=== PATIENT | female | born 1965 | race Asian ===

== ENCOUNTER 2023-06-19 04:03 | Emergency (ER) | payer OTHER, SELFPAY ==
[2023-06-19 04:20] VITALS: BP 132/92
[2023-06-19 04:59] LABS: COVID-19 Antigen Negative (Negative)
--- NOTE | 2023-06-19 05:13 | ED.GENMED ---
History of Present Illness
<ARNOLD Johnson - Last Filed: 06/19/23 06:19>
General
Chief Complaint: Cold/Flu/URI Symptoms
Source: patient
Exam Limitations: none
Time Seen by Provider: 06/19/23 04:53
Nursing documentation reviewed up to this point in time: agreed with
Travel History
Have you had any contact with someone who has COVID-19?: No
Do you have any symptoms of coronavirus? Fever > 100 degrees, chills, cough, shortness of breath, sore throat, loss of taste or smell, muscle aches, or headache?: No
History of Present Illness
History of Present Illness:
This is a 57 year old female who presents to the ED c/o chest congestion x 1 day. Pt states she took robitussin, tessalon perles, and a nose spray prior to sleeping, but woke up around 3 am with continued chest congestion and mucus. She states the
began feeling anxious which made her feel short of breath as well. She felt as though she couldn't talk and her voice was hoarse and sore and she felt as though she was wheezing. She also admits to a runny nose and sore throat. Pt adds that over the
past year, she has been experiencing allergies with a runny nose. She has been blowing her nose often, leading to scabbing and bleeding inside of her nose. She denies any fever, chills, SANTOS, lightheadedness, dizziness, CP, n/v, abdominal pain,
constipation, diarrhea, cough, ear pain, sinus pain, or reflux. She denies any sick contacts. Pt adds that she had a spider bite 2 weeks ago and she was treated with unknown antibiotics which she finished 4 days ago.
Pt also complains of 'carpal tunnel' pain in her right wrist. Pt states she has had intermittent pain in her right wrist for years, especially with touch and trauma. She has not seen ortho and denies using a brace or medications for the pain.
Pt is a former smoker and denies any drug or alcohol use.
Past History
<ST AlexNC - Last Filed: 06/19/23 06:19>
Past History
ED Past Medical History: None
Patient has exhibited threatening behavior?: No
Social History
Tobacco: Former smoker
Alcohol: None
Drug: None
Personal:
Living: with family
Employment: Employed
Review of Systems
<ST AlexNC - Last Filed: 06/19/23 06:19>
Review of Systems
All Other Systems: ROS reviewed and negative except as documented in HPI and ROS
Constitutional: Reports no symptoms; Denies fever or chills
EENT: Reports sore throat and runny nose
Respiratory: Reports cough (intermittent), trouble breathing and other (chest congestion with mucus, chest pressure)
Cardiac: Reports no symptoms; Denies chest pain
ABD/GI: Reports no symptoms; Denies abdominal pain, nausea, vomiting, diarrhea or constipated
: Reports no symptoms
Musculoskeletal: Reports no symptoms; Denies muscle pain
Skin: Reports no symptoms
Neurological: Reports no symptoms; Denies dizzy or headache
Psychiatric: Reports anxiety
Phy Exam
<ST AlexNC - Last Filed: 06/19/23 06:19>
General Physical Exam
General Presentation: no apparent distress
General age: appears stated age
General Skin: warm and dry
General Habitus: normal
General Mental: alert
General Hydration: appears well hydrated
ENT Exam
ENT Exam: TM's normal, pharynx normal, neck supple, normocephalic and swallowing well
Cardiovascular Exam
Cardiovascular Exam: regular rate/rhythm, no edema and no murmur
Heart Sounds: normal
Pulmonary Exam
Pulmonary Exam: lungs clear, no respiratory distress, no rales, no crackles, no rhonchi and no wheezing
Oxygen Status: room air
Gastrointestinal Exam
Gastrointestinal Exam: normal bowel sounds, soft, non distended and tender (mild tenderness to palpation in the epigastric region)
Neurological Exam
Neurological Exam: alert and oriented x3
Musculoskeletal Exam
Musculoskeletal Exam: full ROM and no edema
Skin Exam
Skin Exam: normal color
Psychiatric Exam
Psychiatric Exam: normal mood/affect
Course
<ARNOLD Johnson - Last Filed: 06/19/23 06:19>
Orders/Labs/Results
Orders:
Orders
06/19/23 04:27
COVID-19 Antigen Urgent
Source: Nasal Swab
Influenza A+B Rapid Molecular Urgent
GREGORIO Source: Nasal Swab
Specimen Description:
06/19/23 05:26
ECG [Electrocardiogram (*1)] Stat
Reason for Study: Shortness of Breath
CXR2 [CR Chest - 2 Views ] Stat
Comment:
Reason For Exam: 'CHEST CONGESTION'
06/19/23 05:27
EKG- Treatment ONCE
Vital Signs
Initial and Last Documented VS:
Initial Vital Signs
Temp Pulse Resp BP Pulse Ox
98.2 F 85 18 132/92 96
06/19/23 04:20 06/19/23 04:20 06/19/23 04:20 06/19/23 04:20 06/19/23 04:20
Last Documented Vital Signs
Temp Pulse Resp BP Pulse Ox
98.2 F 85 18 126/87 96
06/19/23 04:20 06/19/23 04:20 06/19/23 04:20 06/19/23 05:54 06/19/23 04:20
<Becki Jiménez MD - Last Filed: 06/19/23 06:14>
Orders/Labs/Results
Orders:
Orders
06/19/23 04:27
COVID-19 Antigen Urgent
Source: Nasal Swab
Influenza A+B Rapid Molecular Urgent
GREGORIO Source: Nasal Swab
Specimen Description:
06/19/23 05:26
ECG [Electrocardiogram (*1)] Stat
Reason for Study: Shortness of Breath
CXR2 [CR Chest - 2 Views ] Stat
Comment:
Reason For Exam: 'CHEST CONGESTION'
06/19/23 05:27
EKG- Treatment ONCE
Vital Signs
Initial and Last Documented VS:
Initial Vital Signs
Temp Pulse Resp BP Pulse Ox
98.2 F 85 18 132/92 96
06/19/23 04:20 06/19/23 04:20 06/19/23 04:20 06/19/23 04:20 06/19/23 04:20
Last Documented Vital Signs
Temp Pulse Resp BP Pulse Ox
98.2 F 85 18 126/87 96
06/19/23 04:20 06/19/23 04:20 06/19/23 04:20 06/19/23 05:54 06/19/23 04:20
<ARNOLD Johnson - Last Filed: 06/19/23 06:19>
*Critical Care Note
Total Time (30-74mins, 75-104mins- exclusive of procedures): Not Applicable
ED Attending Note
<ARNOLD Johnson - Last Filed: 06/19/23 06:19>
-
Portions of this chart may have been created with voice recognition software.� Occasional wrong word or��sound alike� substitutions may have occurred due to the inherent limitations of voice recognition software.
<Becki Jiménez MD - Last Filed: 06/19/23 06:14>
ED Attending Note
Patient seen and examined by attending physician: Yes
I performed the substantive portion of visit, reviewed & personally made and approve the management plan that is documented in note by myself or DRE.: Yes
ED Attending Note:
57-year-old female who notes less than 24-hour history of 'chest congestion' described as mucus in her throat and chest, postnasal drip, and occasional cough. She denies fever, chills, body aches, headache, neck pain or stiffness, photophobia,
rash, leg swelling, abdominal pain. Patient took some cough medication and felt better. She went to bed and awoke at around 3 AM to use the restroom and started to feel mucus again in her throat and chest which made her 'anxious', with mild
shortness of breath. That has since resolved. On exam,
GENERAL: Alert , in no apparent distress
EYE: pupils equal and reactive, no photophobia
NECK: Supple, no significant adenopathy.
ENT: o/p clr, mmm, no trismus, no drool, no submental swelling, TMs clear bilaterally.
CARDIAC: Regular rate and rhythm .
LUNGS: Clear breath sounds bilaterally, no acute respiratory distress, no wheezes/rales/rhonchi, speaks in full sentences easily
ABDOMEN: Soft, without focal tenderness, no r/g, no cvat
NEUROLOGICAL: Alert and oriented, no focal neuro deficits
SKIN: Warm and dry, skin intact.
MUSCULOSKELETAL: No edema, well perfused.
PSYCH: Normal and appropriate interaction.
Patient presents to the Emergency Department with chest congestion
Number and Complexity of Problems Addressed at the Encounter
� Chronic conditions affecting care:
� Acute Exacerbation and/or Progression of Chronic Illness:
� Differential Diagnosis includes: But not limited to bronchitis, pneumonia, COVID, flu, viral URI, etc.
Amount and/or Complexity of Data to be Reviewed and Analyzed
� I performed an independent evaluation of and my interpretation is:
EKG:READ BY ME, NSR, 1ST DEGREE AV BLOCK, NO ACUTE ISCHEMIA
CT:
Xrays:READ by me, nad, no pna, no ptx noted
Laboratory Studies: COVID and flu negative
Other:
� Review of other/old records reveals:
� Clinical information was obtained by an independent historian:
� Prescriptions/Medications Considered but not given:
� Further testing considered but not performed:
Risk of Complications and/or Morbidity or Mortality of Patient Management
� Social determinants of health affecting care:
� Discussion with other providers (PCP, Hospitalists, Consultants, etc):
� Escalation of care including admission/observation vs risk of discharge considered:suspect bronchitis/uri, pox wnl, no pna noted,covid/flu negative. No signs to suggest meneingitis/encephalitis, strept pharyngitis, sepsis,
etc. Doubt pe clinicaly (no identified rf, pox wnl, no leg edema, etc) D/w pt import of f/u and resaons to rted, supportive care.
Discharge Plan
Departure
Patient Disposition: Home (Routine Discharge)
Date of Disposition: 06/19/23
Time of Disposition: 06:08
Patient with high blood pressure during this ER visit?: Yes
Condition: Good
Discharge Problem:
Acute bronchitis
Instructions: Acute Bronchitis, Adult (DC), BLOOD PRESSURE
Prescriptions:
No Action
alprazolam 0.5 MG tablet
0.5 mg PO PRN PRN (Reason: anxiety)
Referrals:
NONE,* [Family Provider] -
Activity Restrictions/Additional Instructions:
PLEASE SEE YOUR DOCTOR IN CLOSE FOLLOW UP. IF YOU DEVELOP HIGH FEVER, ANY TROUBLE BREATHING, CHEST PAIN, VOMITING, DIZZINESS, SWELLING, TROUBLE SWALLOWING, GET WORSE, DO NOT GET BETTER, OR OTHER WORRISOME SIGNS, GO TO THE ER IMMEDIATELY!
Interventions
Interventions:
*Risk Screen - Suicide Last Done: 06/19/23 04:20
*General Assessment Last Done: 06/19/23 04:20
*Neglect/Abuse Screening Last Done: 06/19/23 04:20
ED- Fall Risk Assessment Last Done: 06/19/23 04:20
*ED COVID-19 Vaccine History Last Done: 06/19/23 04:20
ED- Pulmonary Assessment Last Done: 06/19/23 05:50
[2023-06-19 05:54] VITALS: BP 126/87
== END 2023-06-19 06:24 | disposition home or self-care (01) ==
LOC: EMR 04:03
PROVIDERS: EMERGENCY PHYSICIAN Emergency Medicine
DX: J20.9 Acute bronchitis, unspecified (principal); Z87.891 Personal history of nicotine dependence
CPT/HCPCS: 99283; 71046; 87502; 87811; 93005